=== PATIENT | male | born 2000 | race African-American/Black ===

== ENCOUNTER 2023-01-24 11:48 | Inpatient (IN) | payer OTHER ==
[~2023-01-24] VITALS: Ht 177.8 cm; Wt 88.2 kg
[2023-01-24 13:01] LABS: HEMOGLOBIN 12.8 g/dl (13.5-17.5); MEAN CORPUSCULAR HEMOGLOBIN 29.2 pg (27.0-33.0); MEAN CORPUSCULAR HGB CONC 31.2 g/dl (32.0-36.5); MEAN CORPUSCULAR VOLUME 93.4 fl (80.0-96.0); PLATELET COUNT, AUTOMATED 200 10^3/uL (150-450); RED BLOOD COUNT 4.39 10^6/uL (4.30-6.10); WHITE BLOOD COUNT 4.8 10^3/uL (4.0-10.0)
[2023-01-24] MEDS ORDERED: MED REC IN PROGRESS XX SCH (13:20)
[2023-01-24 13:41] LABS: ETHYL ALCOHOL (ETHANOL) 0.004 % (0.000-0.010)
[2023-01-24 13:43] LABS: ACETAMINOPHEN LEVEL < 2.0 UG/ML (10.0-20.0); AMPHETAMINES LEVEL URINE NEGATIVE (NEGATIVE); BARBITURATES URINE NEGATIVE (NEGATIVE); COCAINE METABOLITE URINE NEGATIVE (NEGATIVE); METHADONE URINE NEGATIVE (NEGATIVE); OPIATES URINE NEGATIVE (NEGATIVE); PHENCYCLIDINE URINE NEGATIVE (NEGATIVE); SALICYLATE LEVEL < 3.0 MG/DL (<30)
[2023-01-24 13:44] LABS: ALKALINE PHOSPHATASE 66 U/L (46-116); ALT/SGPT 55 U/L (7.0-40); AST/SGOT 27 U/L (<34); BENZODIAZEPINES URINE NEGATIVE (NEGATIVE); BILIRUBIN,DIRECT 0.2 MG/DL (<0.4); BILIRUBIN,TOTAL 0.6 MG/DL (0.3-1.2); BLOOD UREA NITROGEN 9 MG/DL (9-23); CALCIUM LEVEL 9.2 MG/DL (8.5-10.1); CANNABINOIDS URINE NEGATIVE (NEGATIVE); CARBON DIOXIDE LEVEL 26 MMOL/L (20-31); CHLORIDE LEVEL 107 MMOL/L (98-107); CREATININE FOR GFR 1.05 MG/DL (0.70-1.30); GLOMERULAR FILTRATION RATE > 60.0 (>60); GLUCOSE, FASTING 76 MG/DL (60-100); SODIUM LEVEL 141 MMOL/L (136-145); TOTAL PROTEIN 7.1 G/DL (5.7-8.2)
[2023-01-24 13:46] LABS: THYROID STIMULATING HORMONE 1.218 uIU/ML (0.55-4.78)
[2023-01-24] MEDS ORDERED: HOME MED LIST COMPLETE! XX SCH (14:05)
[2023-01-24] MEDS ORDERED: diphenhydrAMINE 25MG CAP PO PRN (20:35)
[2023-01-24] MEDS ORDERED: IBUPROFEN 400MG TAB PO PRN (20:35)
[2023-01-24] MEDS ORDERED: MOM 30ML SUSPENSION UDC PO PRN (20:35)
[2023-01-24] MEDS ORDERED: traZODone 50 MG TAB PO PRN (20:35)
[2023-01-24] MEDS ORDERED: MAALOX 30 ML SUSP *UDC PO PRN (20:35)
[2023-01-24] MEDS ORDERED: ACETAMINOPHEN TAB 650MG DOSE (2X325MG) PO PRN (20:35)
[2023-01-25 02:08] VITALS: BP 130/74; TEMP 97.7; O2SAT 97
[2023-01-25 06:44] VITALS: BP 150/72; TEMP 98; O2SAT 100
[2023-01-25] MEDS ORDERED: RAMELTEON 8 MG TAB (ROZEREM) PO SCH (21:00)
[2023-01-26 06:43] VITALS: BP 148/63; TEMP 97.9; O2SAT 100
[2023-01-26] MEDS ORDERED: RAME8TAB2 PO (11:28)
== END 2023-01-26 13:10 | disposition home or self-care (01) | DRG 882 ==
LOC: M ED 11:48 → EDBD 11:48 → M ED INP 20:34 → M PSY 01-25 01:06
PROVIDERS: ADMIT Student in an Organized Health Care Education/Training Program; ATTEND Student in an Organized Health Care Education/Training Program
DX: F43.25 Adjustment disorder with mixed disturbance of emotions and conduct (principal); R45.851 Suicidal ideations; F12.90 Cannabis use, unspecified, uncomplicated; Z88.6 Allergy status to analgesic agent

== ENCOUNTER 2023-05-08 11:15 | Emergency (ER) | payer OTHER ==
[~2023-05-08 11:15] MED LIST: RAME8TAB2 PO
[2023-05-08] MEDS ORDERED: TRAZ-252 (11:20)
[2023-05-08 13:51] VITALS: BP 130/80; TEMP 98.3; O2SAT 100
== END 2023-05-08 13:55 | disposition home or self-care (01) ==
LOC: M ED 11:15
DX: S29.011A Strain of muscle and tendon of front wall of thorax, initial encounter (principal); X50.0XXA Overexertion from strenuous movement or load, initial encounter; F32.A Depression, unspecified; Z88.6 Allergy status to analgesic agent; Z88.8 Allergy status to other drugs, medicaments and biological substances; Z79.899 Other long term (current) drug therapy; Y99.9 Unspecified external cause status; Y92.9 Unspecified place or not applicable; Y93.9 Activity, unspecified